=== PATIENT | female | born 1965 | race Caucasian/White ===

== ENCOUNTER 2025-07-06 07:46 | Emergency (ER) | payer MEDICARE, SELFPAY ==
--- NOTE | ~2025-07-06 | XR_ITS ---
Examination: XR forearm LT 2V, XR wrist LT min 3V Clinical History: fall, left forearm pain Comparison: None Technique: 3 views left forearm, 3 views left wrist Findings/impression: Left forearm: 1. Oblique fracture distal ulna. 2. No other forearm fracture identified. Left wrist: 1. Oblique fracture distal ulna. 2. No other wrist fracture identified. Reviewed, dictated and finalized at location R. MENT REVIEW ATTORNEY
--- NOTE | ~2025-07-06 | CT_ITS ---
EXAMINATION: CT wrist LT wo con DATE: 07/06/2025 11:18 INDICATION: Left ulna fracture. TECHNIQUE: Computed tomography (CT) of the left wrist was performed without intravenous contrast. Automated exposure control and iterative reconstruction technique were employed. The dose-length product was 349.62 mGy-cm. COMPARISON: Left wrist radiographs 07/06/2025 FINDINGS: There is an oblique fracture of distal ulnar diaphysis. The distal fracture fragment demonstrates 2 mm posterior ulnar displacement. Joint spaces are normal. No elbow joint effusion. IMPRESSION: 1. Oblique fracture of distal ulnar diaphysis. Reviewed, dictated and finalized at location E. F CREDIT OFFICER
--- NOTE | ~2025-07-06 | CT_ITS ---
CT HEAD NON-CONTRAST Clinical History: fall, poss loc Comparison: None Technique: Unenhanced axial images skull base to vertex Coronal, sagittal reformats CT images acquired with automatic exposure control for dose reduction DLP: 605 mGy-cm Findings: Small nonspecific white matter changes left frontal lobe. Sulci, ventricles: Unremarkable. No intracerebral hemorrhage. No evidence acute territorial infarct. No mass effect, midline shift. Bony calvarium intact. Visualized paranasal sinuses: Clear. Mastoid air cells: Clear. Left parietal scalp contusion. IMPRESSION: 1. No acute intracranial findings. Reviewed, dictated and finalized at location R. UNITY ASSOCIATE
[2025-07-06 07:49] VITALS: BP 162/102; PULSE 82; RESP 20; TEMP 36.6; O2SAT 99
--- OUTSIDE RECORDS SUMMARY | 2025-07-06 07:50 | XMS_ITS | Encounter Summary ---
Author Organization [facility] Address [address] [place] [address] Care Team Providers Care Community Living Instructor Name Role Phone Unavailable Primary Care Provider Unavailabl e Reason for Visit * Reason Onset Date Comments Medication Refill 07/02/2025 Encounter Details Date Type Department Care Team ([facility] st Contact Info) Description 07/02/2025 Refill [facility] Orthopedic Trauma [place] [address] [facility] [address] [place] [address] Carolyne Mclean, EQUIPMENT LEAD [id number] [place] [address] Closed fracture of neck of left femur with routine healing, subsequent encounter (Primary Dx) Social History Tobacco Use Types Packs/Day Years Used Date Smoking Tobacco: Every Day Cigarettes 1 43.9 Started: 1981 Alcohol Use Standard Drinks/Week Comments Never 0 (1 standard drink = 0.6 oz pur e alcohol) Feeling Safe Answer Date Recorded Are you in a relationship wi th someone who hurts you emotionally and/or physically? No 03/17/2025 Food Insecurity Answer Date Recorded Patient needs follow up regardin 03/18/2025 Transportation Needs Answer Date Record ed Patient needs follow up regardin 03/18/2025 Utility Needs Answer Date Recorded Patient needs follow up regardin 03/18/2025 Comments Unknown Sex and Gender Information Value Date Recorded Sex Assigned at Not on file Legal Sex Female 3:19 PM CDT Gender Identity Not on file Sexual Orientation Not on file documented as of this encounter Plan of Treatment Not on file documented as of this encounter Visit Diagnoses Diagnosis Closed fracture of neck of left femur with routine healing, subsequent encounter- Primary documented in this encounter
--- OUTSIDE RECORDS SUMMARY | 2025-07-06 07:51 | XMS_ITS | Clinical Summary ---
Author Organization [facility] Address [address] [place] [address] Phone Care Team Providers Care Sales Order Clerk Name Role Phone Unavailable Primary Care Provider Unavailabl e Allergies No known active allergies Medications lisinopriL (PRINIVIL) 10 mg tablet Take 20 mg by mouth daily. Active LORazepam (ATIVAN) 1 mg tablet Take 1 mg by mouth 2 times daily as needed. 5 Active albuterol sulfate HFA 90 mcg/actuation aerosol inhaler Take 2 Puffs by inhalation every 6 hours as needed. 5 Active Vraylar 3 mg Capsule capsule Take 3 mg by mouth daily. Active colestipoL (COLESTID) 1 gram tablet Take 1 Gram by mouth 2 times daily. 5 02/06/20 26 Active cyclobenzaprin e (FLEXERIL) 10 mg tablet Take 10 mg by mouth 1 time daily as needed. 5 Active donepeziL (ARICEPT) 10 mg tablet Take 10 mg by mouth daily at bedtime. Active furosemide (LASIX) 20 mg tablet Take 40 mg by mouth 1 time daily as needed. 5 Active gabapentin (NEURONTIN) 600 mg tablet Take 600 mg by mouth 4 times daily. 5 Active meclizine (ANTIVERT) 25 mg tablet Take 25 mg by mouth 3 times daily as needed. Active meloxicam (MOBIC) 15 mg tablet Take 15 mg by mouth daily. 5 Active pantoprazole (PROTONIX) 40 mg Tablet, Delayed Release (E.C.) Take 40 mg by mouth daily. Active potassium CHLORIDE (KLOR-CON M10) 10 mEq Extended Release tablet Take 10 mEq by mouth 1 time daily as needed. 5 Active prazosin (MINIPRESS) 1 mg capsule Take 1 mg by mouth daily at bedtime. 5 Active sertraline (ZOLOFT) 100 mg tablet Take 200 mg by mouth daily. Active traMADol (ULTRAM) 50 mg tablet Take 100 mg by mouth 2 times daily as needed. 3 Active traZODone (DESYREL) 100 mg tablet Take 100 mg by mouth daily at bedtime. Active traMADol (ULTRAM) 50 mg tabletIndicati ons:Closed fracture of neck of left femur, initial encounter ([facility]) Take 2 Tablets (100 mg) by mouth every 8 hours as needed for Pain. 21 Tablet 5 Active naloxone (NARCAN) 4 mg/spray [place], Non-Aerosol Administer 1 Austin (4 mg) in one nostril (alternate nostril with each dose) one time as needed for Respiration (slowed with opioid use). Push plunger to administer. Call 911. May repeat dose, every 2-3 minutes, if the person does not wake up or breathing is not improved. 1 Each 1 5 Active lidocaine (LIDODERM) 5 % Adhesive Patch, MedicatedIndic ations:Closed fracture of neck of left femur with routine healing, subsequent encounter Apply 3 Patches to affected area every 24 hours. 30 Patch 5 Active lidocaine (LIDODERM) 5 % Adhesive Patch, Medicated Apply 3 Patches to affected area every 24 hours. 30 Patch 5 07/02/20 25 Discontin ued(Reord er) Active Problems Problem Noted Date Diagnosed Date Closed left hip fracture, initial encounter 02/19 Closed fracture of neck of left femur 03/18/2025 nursing home prescription benzodiazepine use 2024 Chronic venous insufficiency 03/18/2025 Preoperative examination 03/18/2025 COPD, moderate 07/11/2024 Depression 04/11/2023 Neurogenic pain 02/23/2023 Chronic pain disorder 01/11/2023 Overview (03/18/2025): Chronic daily headache Multiple sclerosis; neuropathic pain in LE Lyrica 150 mg up to 3 times daily (stopped 09/18/2023 D/T cost) & gabapentin more effective Diazepam: Confusion Current plan 01/09/25 -) Gabapentin 600 mg QID -) Meloxicam 7.5 --> 01/09/2025: 15 mg -) Flexeril trial 5 mg t.i.d.--> 01/09/2025: 10mg tid trial -) Tramadol 100mg twice daily -) Lorazepam 1mg up to tid (CSM or psychiatry) -) Restoril 30mg at bedtime (psychiatry) Multiple sclerosis 12/19/2022 Recurrent moderate major depressive disorder wit h anxiety 12/19/2022 Essential hypertension 11/18/2015 Encounters Date Type Department Care Team Description 07/02/2025 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 Office Visit [facility] Orthopedic Trauma [place] [address] [address] Carolyne Mclean NP Closed fracture of neck of left femur with routine healing, subsequent encounter (Primary Dx); Arthritis of left hip 07/02/2025 5:45 AM REHEAT FURNACE OPERATOR Ancillary Procedure [facility] Trauma [place] [address] [facility] [address] [address] Devyn Garcia MD Closed fracture of neck of left femur with routine healing, subsequent encounter 07/02/2025 Refill [facility] Tra[facility] [place] [address] [facility] [address] [address] Carolyne Mclean NP Closed fracture of neck of left femur with routine healing, subsequent encounter (Primary Dx) 07/01/2025 External Device Data ST[facility] ABSTRACTION Provider, Abstract 05/27/2025 External Device Data [facility] ABSTRACTION Provider, Abstract 05/27/2025 External Device Data [facility] ABSTRACTION Provider, Abstract 05/21/2025 10:30 AM CDT Office Visit [facility] Trauma [place] [address] [facility] [address] [address] Devyn Garcia MD Closed fracture of neck of left femur, initial encounter ([facility]) (Primary Dx) 05/21/2025 5:35 AM CDT Ancillary Procedure [facility] Tra[facility] [place] [address] [facility] [address] [place] [address] Devyn Garcia MD Closed fracture of neck of left femur, initial encounter ([facility]) 05/21/2025 Telephone [facility] [place] [address] [facility] [address] [place] [address] Devyn Garcia MD Question 05/21/2025 Refill [facility] [place] [address] [facility] [address] [place] [address] Devyn Garcia MD 04/22/2025 External Device Data [facility] ABSTRACTION Provider, Abstract 04/22/2025 External Device Data [facility] ABSTRACTION Provider, Abstract 04/22/2025 External Device Data [facility] ABSTRACTION Provider, Abstract from Last 3 Months Social History Tobacco Use Types Packs/Day Years Used Date Smoking Tobacco: Every Day Cigarettes 1 43.9 Started: 1981 Tobacco Cessation:Ready to Q uit: Not Asked; Counseling Given: Not Answered Alcohol Use Standard Drinks/Week Comments Never 0 [...] on file Sexual Orientation Not on file Last Filed Vital Signs Vital Sign Reading Time Taken Comments Blood Pressure 105/76 03/19/2025 12:42 PM CDT Pulse 78 03/19/2025 12:42 PM CDT Temperature 36.3 C (97.3 F) 03/19/2025 12:42 PM CDT Respiratory Rate 14 03/19/2025 12:4 2 PM CDT Oxygen Saturation 97% 03/19/2025 12: 42 PM CDT Inhaled Oxygen Concentration - - Weight 52.6 kg (115 lb 14.4 oz) 025 11:56 PM CDT Height 167.6 cm (5' 6) 03/17/2025 11:5 6 PM CDT Body Mass Index 18.71 03/17/2025 11:56 PM CDT Plan of Treatment Health Maintenance Due Date Last Done Comments HEPATITIS B VACCINES (1 of 3 - 19+ 3-dose series) 1986 HPV/Cotest (21-29) 1988 HPV/Cotest (30-65) 1997 COLORECTAL SCREENING 2012 Colorectal Cancer Screening 2012 FIT-DNA Q 3 years 2012 FIT/FOBT Q 1 year 2012 Flex Sig/CT Colonography Q 5 years 2012 Lung Cancer Screening 2017 ZOSTER VACCINE (1 of 2) 2017 DTAP/TDAP/TD VACCINES (3 - T d or Tdap) 11/17/2018 11/17/2008, 05/16/2007 INFLUENZA VACCINE (#1) 2025 07/28/2022 COVID-19 Vaccine (2024-2 6 season) 2025 01/05/2021, 12/08/2020 BREAST CANCER SCREENING 01/14/2026 01/15/20, 01/14/2025, 02/17/2023, Additional history exists CERVICAL CANCER SCREENING 04/25/2026 PAP SMEAR 04/25/2026 04/25/2023 Medical Devices Implanted Type Area Mold Designer Device Identifier Shelf Expiration Date Model / Serial / Lot [place] For Femoral Neck System 80mm Length Implanted:Qty: 1 on 03/18/2025 by Rhett Pedro MD at [facility] [place] Left: Hip [employer]J- DEPUY SYNTHES 09/20/2034 [id number] S / / [id number] Femoral Neck System Plate 1 Hole Implanted:Qty: 1 on 03/18/2025 by Rhett Pedro MD at [facility] Plate Left: Hip [employer]- [employer]PUY SYNTHES 12/18/2034 04.168.000 S / / [id number] 5.0mm Ti Locking Screw Self Tapping W/ T25 Stardrive 38mm Implanted:Qty: 1 on 03/18/2025 by Rhett Pedro MD at [facility] Screw Left: Hip J[employer]J- DEPUY SYNTHES 11/18/2034 412.213S / / [id number] Antirotation Screw For Femoral Neck Sys Implanted:Qty: 1 on 03/18/2025 by Rhett Pedro MD at [facility] Left: Hip SYNTHES LTD [facility] 08/20/2034 04.168.485 S / / [id number] Explanted Type Area Mold Designer Device Identifier Shelf Expiration Date Model / Serial / Lot Antirotation Screw For Femoral Neck System Explanted:Qty: 1 on 03/18/2025 by Rhett Pedro MD at [facility] Screw Left: Hip [employer]J- DEPUY SYNTHES 08/20/2034 04.168.480 S / / [id number] Description:Not All Synthes components, Requisition, [id number]. Guidewire [id number] W/ Drill Tip 03.045.018 - [id number] Explanted:Qty: 1 on 03/18/2025 by Rhett Pedro MD at [facility] Wire Left: Hip J[employer]J- DEPUY SYNTHES 03.045.018 / / Insurance [employer] [facility] Advance Directives For more information, please contact: [phone] * Full Code (Latest Code Status on File) Date Activated Date Inactivated Comments 03/18/2025 2:09 PM 03/19/2025 8:12 PM * Full Code Date Activated Date Inactivated Comments 03/18/2025 12:39 PM 03/18/2025 2:09 PM * Full Code Date Activated Date Inactivated Comments 03/18/2025 1:31 AM 03/18/2025 12:39 PM
--- NOTE | 2025-07-06 09:05 | ED.UPPEXIN ---
HPI - Extremity Injury (Upper) General Chief Complaint: Extremity Injury, Upper Stated Complaint: L WRIST PAIN Time Seen by Provider: 07/06/25 07:50 Source: patient Mode of arrival: ambulatory Limitations: no limitations History of Present Illness HPI narrative: This is a 59-year-old female with history of MS, hypertension, depression, hyperlipidemia who presents to the ED for a fall. Patient states last night she lost her balance which she does frequently and fell onto outstretched left wrist. She has had pain and deformity to the wrist since then. Denies numbness, tingling. She also states that she hit her head and is unsure of loss consciousness. She is not on any blood thinners. Related Data Home Medications ?Medication ?Instructions ?Recorded ?Confirmed ?Last Taken ?Type albuterol (refill) 90 mcg inhalation 06/27/25 06/27/25 Unknown History mcg/actuation aerosol inhaler cariprazine 3 mg capsule (Vraylar) 3 mg PO DAILY 06/27/25 06/27/25 Unknown History colestipol 1 gram tablet 1 g PO ONCE 06/27/25 06/27/25 Unknown History cyclobenzaprine 10 mg tablet 10 mg PO BID 06/27/25 06/27/25 Unknown History donepezil 10 mg tablet 10 mg PO QHS 06/27/25 06/27/25 Unknown History gabapentin 600 mg tablet 600 mg PO BID 06/27/25 06/27/25 Unknown History lamotrigine 25 mg (42)-100 mg (7) See Rx Instructions PO PER PKG DIR 06/27/25 06/27/25 Unknown History tablets in a dose pack (Lamictal Starter ([place]) Kit) lisinopril 20 mg tablet 20 mg PO BID 06/27/25 06/27/25 Unknown History lorazepam 1 mg tablet 1 mg PO BID PRN 06/27/25 06/27/25 Unknown History meclizine 25 mg tablet 25 mg PO TID PRN dizziness 06/27/25 06/27/25 Unknown History pantoprazole 40 mg tablet,delayed 40 mg PO QAM 06/27/25 06/27/25 Unknown History release prazosin 1 mg capsule 1 mg PO QHS 06/27/25 06/27/25 Unknown History sertraline 50 mg tablet 50 mg PO DAILY 06/27/25 06/27/25 Unknown History temazepam 7.5 mg capsule 7.5 mg PO QHS 06/27/25 06/27/25 Unknown History tramadol 50 mg tablet 100 mg PO Q6H PRN 06/27/25 06/27/25 Unknown History trazodone 100 mg tablet 100 mg PO QHS PRN 06/27/25 06/27/25 Unknown History Allergies Allergy/AdvReac Type Severity Reaction Status Date / Time diazepam Allergy Intermediate Agitated Verified 06/27/25 14:35 Review of Systems Review of Systems: Gen.: Denies fevers or chills Eyes: Denies eye pain or visual change ENT: Denies congestion Respiratory: Denies shortness of breath or cough CV: Denies chest pain or palpitations GI: Denies abdominal pain nausea, emesis or diarrhea denies burning, urgency, frequency or hematuria Musculoskeletal: Denies back pain or muscle pain Neuro: Denies numbness, tingling, weakness or focal weakness Skin: Denies rash Except as documented, all other systems reviewed and negative [facility] Past Medical History Medical History Cigarette nicotine dependence with nicotine-induced disorder Simple chronic bronchitis Essential (primary) hypertension Memory problem Multiple sclerosis PTSD (post-traumatic stress disorder) Major depressive disorder, recurrent episode Pure hypercholesterolemia, unspecified Age-related osteoporosis without current pathological fracture Surgical History Surgical History History of x2 History of repair of hip fracture February, Family History Family History Mother Multiple myeloma Hypertension Sibling Breast cancer Social History Social History Smoking packs per day: 1 Smoking cigarettes per day: 20.0 Smoking status: Current every day smoker Drinks per week: 1 Alcohol use details: Maybe one glass of wine per month Substance use: never Living arrangements: alone Occupation/Education: other Additional occupation/education comments: Disabled. 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 Gender identity (if verbalized by the patient): Female Exam Narrative: APPEARANCE: No acute distress, nontoxic, resting in bed EYES: EOMI HEENT: Normocephalic, OMM. Small hematoma and tenderness over the left supraorbital frontal bone RESPIRATORY: No respiratory distress Clear to auscultation bilaterally with no rhonchi wheezing or rales. CARDIOVASCULAR: Regular rate and rhythm without murmurs rubs or gallops. ABDOMINAL: Soft, nontender, nondistended, no rebound or guarding MUSCULOSKELETAl: Tenderness and deformity to the distal left ulna, neurovascularly intact distally. NEURO: Awake and alert. Following commands, speech normal, no focal deficits SKIN:: Warm, dry. No rashes lesions or abrasions PSYCHIATRIC: Normal affect/mood, Course Vital Signs Vital signs: Vital Signs Temperature 97.9 F 07/06/25 07:49 Pulse Rate 82 07/06/25 07:49 Respiratory Rate 20 07/06/25 07:49 Blood Pressure 162/102 H 07/06/25 07:49 Pulse Oximetry 99 07/06/25 07:49 Oxygen Delivery Room Air 07/06/25 07:49 Temperature 97.9 F 07/06/25 07:49 Pulse Rate 70 07/06/25 10:19 Respiratory Rate 16 07/06/25 10:19 Blood Pressure 130/76 07/06/25 10:19 Pulse Oximetry 98 07/06/25 10:19 Oxygen Delivery Room Air 07/06/25 07:49 MDM - Extremity Injury (Upper) MDM Narrative Medical decision making narrative: 59-year-old female Presenting for fall and left wrist pain. On initial evaluation patient was in no acute distress afebrile, hemodynamic stable. Differentials include but are not limited to: Fracture, sprain, strain, contusion, intracranial hemorrhage, subdural hematoma Notable exam findings: Tenderness and deformity to the left distal forearm I personally reviewed the patient's images and interpret as follows: Distal ulna fracture mildly displaced CT head showed no acute process. Case was discussed with Dr. Frank, orthopedic surgery, who recommended adding on CT wrist to further characterize the fracture and will follow-up with patient as an outpatient. Patient was placed in a sugar-tong splint. Patient was deemed appropriate for discharge at this time. Patient was advised follow-up with their PCP in the next week for re-evaluation. Patient was agreeable to this plan. Given strict return precautions. Medical Records Attestation: I reviewed the patient's medical records. Imaging Data Attestation: I personally reviewed and interpreted this imaging study as follows: Radiologist's impression: Impressions Head CT 07/06/25 09:25 IMPRESSION: 1. No acute intracranial findings. Wrist CT 07/06/25 12:16 IMPRESSION: 1. Oblique fracture of distal ulnar diaphysis. Discharge Plan Discharge Clinical Impression: Hematoma Fall Qualifiers: Encounter type: initial encounter Qualified Code(s): W19.XXXA - Unspecified fall, initial encounter Left ulnar fracture Qualifiers: Encounter type: initial encounter Ulna location: distal Fracture type: closed Fracture morphology: other fracture Qualified Code(s): S52.692A - Other fracture of lower end of left ulna, initial encounter for closed fracture CHI (closed head injury) Qualifiers: Encounter type: initial encounter Qualified Code(s): S09.90XA - Unspecified injury of head, initial encounter Patient Disposition: Home Condition: Stable Instructions: Antibiotic Form, Wrist Fracture in Adults (ED), Fall Prevention (ED) Additional Instructions: You may take Tylenol and ibuprofen for your pain. Follow-up with Dr. Frank, orthopedic surgery, in the next week for re-evaluation. Return to the ED for any new or worsening symptoms. Patient Language: Vincentian Prescriptions: No Action prazosin 1 mg capsule 1 mg PO QHS donepezil 10 mg tablet 10 mg PO QHS temazepam 7.5 mg capsule 7.5 mg PO QHS trazodone 100 mg tablet 100 mg PO QHS PRN pantoprazole 40 mg tablet,delayed release (DR/EC) 40 mg PO QAM sertraline 50 mg tablet 50 mg PO DAILY colestipol 1 gram tablet 1 g PO ONCE albuterol (refill) 90 mcg/actuation aerosol inhalation lamotrigine [Lamictal Starter ([place]) Kit] 25 mg (42) -100 mg (7) tablets,dose pack See Rx Instructions PO PER PKG DIR Rx Instructions: PO PER PKG DIR Vraylar 3 mg capsule 3 mg PO DAILY lorazepam 1 mg tablet 1 mg PO BID PRN cyclobenzaprine 10 mg tablet 10 mg PO BID gabapentin 600 mg tablet 600 mg PO BID lisinopril 20 mg tablet 20 mg PO BID meclizine 25 mg tablet 25 mg PO TID PRN (Reason: dizziness) tramadol 50 mg tablet 100 mg PO Q6H PRN valacyclovir 500 mg tablet 500 mg PO DAILY Qty: 90 1RF alendronate 70 mg tablet 70 mg PO WEEKLY Qty: 12 1RF calcium carbonate [Calcium 600] 600 mg calcium (1,500 mg) tablet 600 mg PO DAILY Qty: 90 0RF cholecalciferol (vitamin D3) 25 mcg (1,000 unit) capsule 25 mcg PO DAILY Qty: 90 0RF Follow-up/Referrals: Dickson Wharton MD [Primary Care Provider, Family Practice]
[2025-07-06] MEDS: oxyCODONE HCL (*CRX) 5 MG TAB IR PO (09:34)
[2025-07-06 09:35] VITALS: BP 133/74; PULSE 72; RESP 16; O2SAT 100
[2025-07-06] MEDS: fentaNYL CITRATE INJ (*CRX) 100 MCG/2 ML VIAL 50 MCG IV PUSH (10:13)
[2025-07-06 10:19] VITALS: BP 130/76; PULSE 70; RESP 16; O2SAT 98
== END 2025-07-06 11:39 | disposition home or self-care (01) ==
PROVIDERS: Emergency Provider Student in an Organized Health Care Education/Training Program; PCP Family Medicine
DX: S59.092A Other physeal fracture of lower end of ulna, left arm, initial encounter for closed fracture (principal); S00.12XA Contusion of left eyelid and periocular area, initial encounter; R29.6 Repeated falls; G35.D Multiple sclerosis, unspecified; I10 Essential (primary) hypertension; J41.0 Simple chronic bronchitis; E78.00 Pure hypercholesterolemia, unspecified; M81.0 Age-related osteoporosis without current pathological fracture; F43.10 Post-traumatic stress disorder, unspecified; F33.9 Major depressive disorder, recurrent, unspecified; Z79.899 Other long term (current) drug therapy; F17.210 Nicotine dependence, cigarettes, uncomplicated; W18.39XA Other fall on same level, initial encounter
CPT/HCPCS: 29125; 70450; 73090; 73110; 73200; 96374; 99284; A4565; A9270; J3010

== ENCOUNTER 2025-07-13 07:42 | Emergency (ER) | payer MEDICARE, SELFPAY ==
[2025-07-13 07:51] VITALS: BP 109/76; PULSE 82; RESP 17; TEMP 37.1; O2SAT 99
--- NOTE | 2025-07-13 08:24 | ED.UPPEXIN ---
HPI - Extremity Injury (Upper) General Chief Complaint: Extremity Injury, Upper Stated Complaint: pain with splint from last week Time Seen by Provider: 07/13/25 07:47 History of Present Illness HPI narrative: 59-year-old female present to the emergency department for evaluation for pain associated with her left arm splint. Patient does have a fracture of her distal ulna and prior physician had discussed the case with Orthopedic surgery and they requested a sugar-tong. Pain patient states she felt this was putting excessive pressure on her elbow and patient's arm was not at 90? upon arrival to the emergency department, pain she was complaining that she was unable to straighten her arm. No evidence of ulceration. Patient was provided a sling but states she did not feel that was comfortable. Splint was removed to the emergency department. In discussion the patient declined to have a sugar-tong replaced and asked for a shorter splinted. Page was advised that this was the requested splint by Orthopedics. Patient states she does have follow-up with Orthopedics in 2 days. Related Data Home Medications ?Medication ?Instructions ?Recorded ?Confirmed ?Last Taken ?Type albuterol (refill) 90 mcg inhalation 06/27/25 06/27/25 Unknown History mcg/actuation aerosol inhaler cariprazine 3 mg capsule (Vraylar) 3 mg PO DAILY 06/27/25 06/27/25 Unknown History colestipol 1 gram tablet 1 g PO ONCE 06/27/25 06/27/25 Unknown History cyclobenzaprine 10 mg tablet 10 mg PO BID 06/27/25 06/27/25 Unknown History donepezil 10 mg tablet 10 mg PO QHS 06/27/25 06/27/25 Unknown History gabapentin 600 mg tablet 600 mg PO BID 06/27/25 06/27/25 Unknown History lamotrigine 25 mg (42)-100 mg (7) See Rx Instructions PO PER PKG DIR 06/27/25 06/27/25 Unknown History tablets in a dose pack (Lamictal Starter ([place]) Kit) lisinopril 20 mg tablet 20 mg PO BID 06/27/25 06/27/25 Unknown History lorazepam 1 mg tablet 1 mg PO BID PRN 06/27/25 06/27/25 Unknown History meclizine 25 mg tablet 25 mg PO TID PRN dizziness 06/27/25 06/27/25 Unknown History pantoprazole 40 mg tablet,delayed 40 mg PO QAM 06/27/25 06/27/25 Unknown History release prazosin 1 mg capsule 1 mg PO QHS 06/27/25 06/27/25 Unknown History sertraline 50 mg tablet 50 mg PO DAILY 06/27/25 06/27/25 Unknown History temazepam 7.5 mg capsule 7.5 mg PO QHS 06/27/25 06/27/25 Unknown History tramadol 50 mg tablet 100 mg PO Q6H PRN 06/27/25 06/27/25 Unknown History trazodone 100 mg tablet 100 mg PO QHS PRN 06/27/25 06/27/25 Unknown History Allergies Allergy/AdvReac Type Severity Reaction Status Date / Time diazepam Allergy Intermediate Agitated Verified 07/13/25 07:47 Review of Systems Review of Systems: All systems reviewed & are unremarkable except as noted in HPI and below PMFSH Past Medical History Medical History Cigarette nicotine dependence with nicotine-induced disorder Simple chronic bronchitis Essential (primary) hypertension Memory problem Multiple sclerosis PTSD (post-traumatic stress disorder) Major depressive disorder, recurrent episode Pure hypercholesterolemia, unspecified Age-related osteoporosis without current pathological fracture Surgical History Surgical History History of x2 History of repair of hip fracture February, Family History Family History Mother Multiple myeloma Hypertension Sibling Breast cancer Social History Social History Smoking packs per day: 1 Smoking cigarettes per day: 20.0 Smoking status: Current every day smoker Drinks per week: 1 Alcohol use details: Maybe one glass of wine per month Substance use: never Living arrangements: alone Occupation/Education: other Additional occupation/education comments: Disabled. 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 Gender identity (if verbalized by the patient): Female Exam Narrative: APPEARANCE: Well appearing, no pain, no distress, well-nourished. HEAD: normocephalic, atraumatic. EYES: PERRLA/EOMI, conjunctivae clear. NOSE: Normal no drainage EARS:TMS clear with good light reflex. THROAT: Pharynx clear, no exudate. NECK: Supple. No adenopathy, no masses. RESPIRATORY: Airway patent, respirations nonlabored. Clear to auscultation bilaterally, no rales, rhonchi, wheezing. CARDIOVASCULAR: Regular rate and rhythm without murmurs rubs or gallops. ABDOMINAL: Soft, nontender, nondistended, normal bowel sounds MUSCULOSKELETAL: Left arm pain, neurovascularly intact NEURO: Alert. Cranial nerves II through XII intact. Good gait. Good coordination SKIN: No skin ulceration Course Vital Signs Vital signs: Vital Signs Temperature 98.7 F 07/13/25 07:51 Pulse Rate 82 07/13/25 07:51 Respiratory Rate 17 07/13/25 07:51 Blood Pressure 109/76 07/13/25 07:51 Pulse Oximetry 99 07/13/25 07:51 Oxygen Delivery Room Air 07/13/25 07:51 Temperature 98.7 F 07/13/25 07:51 Pulse Rate 82 07/13/25 07:51 Respiratory Rate 17 07/13/25 07:51 Blood Pressure 109/76 07/13/25 07:51 Pulse Oximetry 99 07/13/25 07:51 Oxygen Delivery Room Air 07/13/25 07:51 MDM - Extremity Injury (Upper) MDM Narrative Medical decision making narrative: 59-year-old female presenting to the emergency department for evaluation for and uncomfortable left splint. Patient was advised that orthopedics did request a sugar-tong of the left arm at patient felt this was too uncomfortable and declined. Patient was placed in an ulnar gutter. Patient is also given an other pouch sling to help with comfort. Patient states that she does have follow-up with Orthopedics in 2 days. Differential Diagnosis Differential diagnosis: Likely fracture of wrist, fracture of hand and other Discharge Plan Discharge Clinical Impression: Fx distal ulna-closed Qualifiers: Encounter type: subsequent encounter Patient Disposition: Home Condition: Stable Instructions: Antibiotic Form, How to Use a Sling (ED), Splint Care (ED) Additional Instructions: Continue to have close follow-up with Orthopedics, Dr Frank. If you have any worsening symptoms please call or return to the emergency department. Patient Language: Armenian Prescriptions: No Action prazosin 1 mg capsule 1 mg PO QHS donepezil 10 mg tablet 10 mg PO QHS temazepam 7.5 mg capsule 7.5 mg PO QHS trazodone 100 mg tablet 100 mg PO QHS PRN pantoprazole 40 mg tablet,delayed release (DR/EC) 40 mg PO QAM sertraline 50 mg tablet 50 mg PO DAILY colestipol 1 gram tablet 1 g PO ONCE albuterol (refill) 90 mcg/actuation aerosol inhalation lamotrigine [Lamictal Starter ([place]) Kit] 25 mg (42) -100 mg (7) tablets,dose pack See Rx Instructions PO PER PKG DIR Rx Instructions: PO PER PKG DIR Vraylar 3 mg capsule 3 mg PO DAILY lorazepam 1 mg tablet 1 mg PO BID PRN cyclobenzaprine 10 mg tablet 10 mg PO BID gabapentin 600 mg tablet 600 mg PO BID lisinopril 20 mg tablet 20 mg PO BID meclizine 25 mg tablet 25 mg PO TID PRN (Reason: dizziness) tramadol 50 mg tablet 100 mg PO Q6H PRN valacyclovir 500 mg tablet 500 mg PO DAILY Qty: 90 1RF alendronate 70 mg tablet 70 mg PO WEEKLY Qty: 12 1RF calcium carbonate [Calcium 600] 600 mg calcium (1,500 mg) tablet 600 mg PO DAILY Qty: 90 0RF cholecalciferol (vitamin D3) 25 mcg (1,000 unit) capsule 25 mcg PO DAILY Qty: 90 0RF Follow-up/Referrals: Dickson Wharton MD [Primary Care Provider, Family Practice]
--- NOTE | 2025-07-26 08:13 | PC.NURSE ---
late entry: Ulnar Gutter splint allied to left arm.
== END 2025-07-13 08:43 | disposition home or self-care (01) ==
PROVIDERS: Emergency Provider Emergency Medicine; PCP Family Medicine
DX: S52.602D Unspecified fracture of lower end of left ulna, subsequent encounter for closed fracture with routine healing (principal); I10 Essential (primary) hypertension; F17.210 Nicotine dependence, cigarettes, uncomplicated; X58.XXXD Exposure to other specified factors, subsequent encounter
CPT/HCPCS: 29125; 99282; A4565